=== PATIENT | male | born 1960 | race Hispanic/Latino ===

== ENCOUNTER 2024-01-18 07:22 | Outpatient (CLI) | payer OTHER ==
[2024-01-18] MEDS ORDERED: Iopamidol 370 76% 100 ML VIAL ONE (10:01)
== END 2024-01-18 07:23 | disposition home or self-care (01) ==
LOC: CSHCT 07:22
PROVIDERS: ATTEND Student in an Organized Health Care Education/Training Program
DX: R79.89 Other specified abnormal findings of blood chemistry (principal); M54.50 Low back pain, unspecified; A08.4 Viral intestinal infection, unspecified
CPT/HCPCS: 36415; 74177; 82565